=== PATIENT | female | born 2000 | race Caucasian/White ===

== ENCOUNTER 2024-04-24 00:32 | Emergency (ER) | payer OTHER ==
[~2024-04-24] VITALS: Ht 157.5 cm; Wt 54.5 kg
[2024-04-24 00:38] VITALS: TEMP 97.8
[2024-04-24] MEDS ORDERED: LORazepam 0.5 MG TAB PO ONE (01:30)
[2024-04-24] MEDS ORDERED: predniSONE 20 MG TAB PO ONE (01:30)
[2024-04-24] MEDS ORDERED: Albuterol 90 MCG/PUFF 8 GM MDI IH ONE (01:30)
[2024-04-24] MEDS ORDERED: PREDNISONE50 MG PO (02:51)
[2024-04-24 03:10] VITALS: BP 110/81; PULSE 74
== END 2024-04-24 03:10 | disposition home or self-care (01) ==
LOC: COL.ER 00:32
DX: R06.02 Shortness of breath (principal); Z87.891 Personal history of nicotine dependence
CPT/HCPCS: J7512